=== PATIENT | male | born 1965 | race Hispanic/Latino ===

== ENCOUNTER 2016-11-08 08:42 | Emergency (ER) | payer OTHER ==
[~2016-11-08] VITALS: Ht 167.6 cm; Wt 99.8 kg
[~2016-11-08 08:42] MED LIST: FLEXERIL10 MG PO; LIORESAL 10MG T10 MG PO; MEDROL DOSEPAK1 PA1 PO; METFORMIN500 MG PO; MOBIC15 MG PO; MOTRIN800 MG PO; ULTRAM(MONOGRAP50 MG PO
[2016-11-08 08:47] VITALS: BP 141/87
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
[2016-11-08] MEDS ORDERED: MOBIC15 M1 PO (09:18)
== END 2016-11-08 09:26 ==
LOC: ERH 08:42
DX: M54.5 Low back pain (principal)